=== PATIENT | female | born 1985 ===

== ENCOUNTER 2024-06-30 09:11 | Inpatient (IN) ==
[2024-06-30] MEDS: Lactated Ringers 1000 ml BAG 1,000 ML IV ONE (09:52)
[2024-06-30 10:22] LABS: Hematocrit 29.6 % (35-45); Hemoglobin 9.4 g/dL (11.5-14.3); Mean Corpuscular Hemoglobin 26.9 pg (27-33); Mean Corpuscular Hgb Conc 31.9 g/dL (31-36); Mean Corpuscular Volume 84.3 fL (80-97); Red Blood Count 3.51 10^6/uL (3.63-4.92)
[2024-06-30] MEDS: ceFOXitin 2 GM IVPREMIX 2 GM/50 ML BAG IVPB ONE (10:36)
[2024-06-30] MEDS ORDERED: Oxytocin 10 UNITS/ML 1 ML VIAL ONE (10:37)
[2024-06-30] MEDS: Sodium Citrate/Citric Acid LIQ 15 ML UDC PO ONE (10:37)
[2024-06-30] MEDS ORDERED: Ondansetron 4 mg VIAL 2 MG/ML 2 ml VIAL ONE (10:37)
[2024-06-30] MEDS ORDERED: Morphine PF AMP (0.5MG/ML) 5 MG/10 ML AMP ONE (10:38)
[2024-06-30] MEDS ORDERED: fentaNYL 100 mcg/2 ml 50 MCG/ML VIAL ONE (10:38)
[2024-06-30] MEDS ORDERED: Phenylephrine 40 mcg/mL 10mL (400mcg) SYRINGE ONE (10:42)
[2024-06-30 10:43] LABS: ABS Basophils 0.1 10^3/uL (0.0-0.1); ABS Eosinophils 0.1 10^3/uL (0.0-0.5); ABS Lymphocytes 1.9 10^3/uL (1.0-4.8); ABS Monocytes 0.6 10^3/uL (0.0-0.9); ABS Neutrophils 5.9 10^3/uL (1.5-7.6); ABS Nucleated RBC 0.02 10^3/ul; Eosinophil % 0.9 %; Lymphocyte % 22.6 %; Mean Platelet Volume 7.5 fL (7.5-11.2); Nucleated Red Blood Cells % 0.2 %/100WBC (0.0-0.8); Platelet Count 320 10^3/uL (150-450); White Blood Count 8.6 10^3/uL (3.8-11.8)
[2024-06-30] MEDS: Lactated Ringers 1000 ml BAG 1,000 ML IV SCH (10:47)
[2024-06-30] MEDS ORDERED: Sevoflurane BOTTLE ONE (11:00)
[2024-06-30] MEDS ORDERED: Acetaminophen IV 1 GM/100ML 1,000 MG/100 ML BAG IV ONE (11:02)
[2024-06-30] MEDS ORDERED: Meperidine 50 mg/ml SYRINGE 1 ml ONE (12:45)
[2024-06-30] MEDS ORDERED: Midazolam 2 mg/2 ml VIAL 1 mg/ml 2 ml VIAL (2 mg) ONE (12:52)
[2024-06-30] MEDS ORDERED: Metoprolol Tartrate 5 mg VIAL 5 ml VIAL (1 mg/ml) ONE (12:55)
[2024-06-30 13:05] LABS: Urine Appearance Clear; Urine Bilirubin Negative (Negative); Urine Blood Negative (Negative); Urine Color Colorless; Urine Glucose Negative (Negative); Urine Ketones 1+ (Negative); Urine Nitrite Negative (Negative); Urine Protein Negative (Negative); Urine Specific Gravity 1.005 (1.002-1.030); Urine Urobilinogen Negative (Negative); Urine pH 6.5 (5.0-8.0)
[2024-06-30 13:31] LABS: Urine Benzodiazepine Screen None Detected (None Detect); Urine Cannabinoids Screen None Detected (None Detect); Urine Opiates Screen None Detected (None Detect)
[2024-06-30] MEDS ORDERED: Witch Hazel PAD JAR TOPICAL PRN (14:37)
[2024-06-30] MEDS ORDERED: Glycerin ADULT 2.4 gm SUPP PR PRN (14:37)
[2024-06-30] MEDS ORDERED: Polyethylene Glycol 3350 17 GM PACKET PO PRN (14:37)
[2024-06-30] MEDS: Oxytocin in LR 20,000 MILLI.UNIT/1,000 ML BAG IV SCH (14:48)
[2024-06-30] MEDS ORDERED: Lactated Ringers 1000 ml BAG 1,000 ML IV SCH (15:00)
[2024-06-30] MEDS ORDERED: Ondansetron 4 mg VIAL 2 MG/ML 2 ml VIAL IV PRN (17:40)
[2024-06-30] MEDS ORDERED: Naloxone 0.4 mg VIAL 0.4 mg/ml 1 ml VIAL IV PUSH PRN (17:40)
[2024-06-30] MEDS ORDERED: Metoclopramide 5 MG/ML VIAL (10 mg) IV PRN (17:40)
[2024-06-30] MEDS ORDERED: Acetaminophen IV 1 GM/100ML 1,000 MG/100 ML BAG IV PRN (17:40)
[2024-06-30] MEDS: Oxytocin in LR 20,000 MILLI.UNIT/1,000 ML BAG IV ONE (19:48)
[2024-06-30] MEDS: Buffered Lidocaine 1% SYRIN 1 ml INTRADERM ONE (19:48)
[2024-07-01 07:02] LABS: Hematocrit 30.2 % (35-45); Hemoglobin 10.1 g/dL (11.5-14.3); Mean Corpuscular Hemoglobin 27.2 pg (27-33); Mean Corpuscular Hgb Conc 33.4 g/dL (31-36); Mean Corpuscular Volume 81.5 fL (80-97); Mean Platelet Volume 7.1 fL (7.5-11.2); Platelet Count 256 10^3/uL (150-450); Red Cell Distribution Width 16.9 % (12-17); White Blood Count 8.1 10^3/uL (3.8-11.8)
[2024-07-01 08:19] LABS: ABS Basophils 0.1 10^3/uL (0.0-0.1); ABS Eosinophils 0.1 10^3/uL (0.0-0.5); ABS Lymphocytes 1.2 10^3/uL (1.0-4.8); ABS Monocytes 0.6 10^3/uL (0.0-0.9); ABS Neutrophils 6.1 10^3/uL (1.5-7.6); Lymphocyte % 15.3 %; RBC Morphology Normal (Normal)
[2024-07-02 08:11] VITALS: BP 129/77
[2024-07-02] MEDS: RHO D Immune Globulin (HUMAN) 300 MCG = 1,500 I.U. INJ IM PRN (08:15)
== END 2024-07-02 14:03 | disposition home or self-care (01) | DRG 540 ==
LOC: MCHOB 09:11
PROVIDERS: ADMIT Obstetrics & Gynecology; ATTEND Obstetrics & Gynecology